=== PATIENT | female | born 1985 | race Caucasian/White ===

== ENCOUNTER 2021-05-29 18:24 | Emergency (ER) | payer OTHER, SELFPAY ==
[2021-05-29 18:26] VITALS: BP 121/80; PULSE 91; RESP 18; TEMP 36.6; O2SAT 100; BMI 27.8
--- NOTE | 2021-05-29 19:20 | EKG12_ITS ---
Test Reason : CP Blood Pressure : / mmHG Vent. Rate : 081 BPM Atrial Rate : 081 BPM P-R Int : 126 ms QRS Dur : 084 ms QT Int : 376 ms P-R-T Axes : 073 071 054 degrees QTc Int : 436 ms Normal sinus rhythm Normal ECG Confirmed by QUINCY GARCIA, LILLIE ([id number]), dictionary editor SARAH HAMILTON ([id number]) on 05/30/2021 1:43:22 PM Referred By: MARIELENA Confirmed By:LILLIE MATHEW MD
[2021-05-29 19:30] VITALS: BP 106/72; PULSE 86; RESP 17; O2SAT 100
--- NOTE | 2021-05-29 19:45 | RAD_ITS ---
STUDY: X-RAY CHEST REASON FOR EXAM: Female, 35 years old. Chest pain TECHNIQUE: Single AP portable view of the chest. COMPARISON: None. FINDINGS: The lungs are clear and expanded. There is no demonstrated pleural abnormality. Normal size heart. Normal mediastinum and freedom. Normal visualized pulmonary arteries. Normal visualized aortic arch and descending thoracic aorta. Normal visualized thoracic spine. Normal visualized ribs, clavicles, and shoulders. There is no demonstrated abnormality of the visualized soft tissue structures of the upper abdomen. RAD/Chest 1 View (Portable) IMPRESSION: Normal x-ray examination of the chest. Electronically Signed: Reggie Miller MD at 20:33 EDT ,
[2021-05-29 19:46] LABS: Absolute Lymphocyte Count 2.49 X10^3/uL (0.83-4.51); Absolute Neutrophil Count 6.1 X10^3/uL (2.0-7.7); Basophil# 0.04 X10^3/uL; Basophil% 0.4 % (0-1); Eosinophil# 0.16 X10^3/uL; Eosinophils% 1.7 % (0-5); Hematocrit 42.5 % (37-47); Hemoglobin 14.6 g/dL (12.0-15.0); Lymphocyte # 2.49 X10^3/ul (0.83-4.51); Lymphocyte % 25.8 % (19-41); Mean Corp Hgb Conc 34.4 g/dL (32-36); Mean Corpuscular Hgb 29.2 pg (27.0-32.0); Mean Platelet Vol. 8.9 fl (6.2-12.0); Monocyte% 9.3 % (0-10); NRBC Flagged by Analyzer 0 % (0-5); Neutrophil # 6.05 X10^3/uL (2.7-7.7); Neutrophil % 62.6 % (47-70); Platelet Count 380 K/mm3 (150-450); RBC Distribution Width CV 12.2 % (11.6-14.6); RBC Distribution Width SD 37.5 fl (35.1-43.9); White Blood Count 9.7 K/mm3 (4.4-11.0)
[2021-05-29 20:07] LABS: Anion Gap 6 (5-15); BUN 11 mg/dL (7-18); BUN/Creat Ratio 13.8 RATIO (10-20); Calcium,Total 9.5 mg/dL (8.5-10.1); Chloride 105 mmol/L (98-107); EST Glomerular Filtration Rate 87 mL/min (>60); Est Glom Filt Rate - Afr Amer 105 mL/min (>60); Estimated Creatinine Clearance 99.95 ml/min; Glucose 91 mg/dL (74-106); Potassium 3.7 mmol/L (3.5-5.1); Sodium Level 139 mmol/L (136-145); Troponin-I HS < 3 pg/mL (3.0-54.0)
--- NOTE | 2021-05-29 20:58 | ED.VIS.CHEST ---
HPI History of Present Illness Chief Complaint: Chest Pain Narrative Narrative: 35-year-old female presenting with chest pain. She states it is very mild. It started this morning in the right ribs when she woke up and she thought she was sleeping in the wrong position so she just herself. Now she has some pain in the anterior portion of the right parasternal area. She does not have any shortness of breath. She denies sharp pleuritic pain. She denies fever, chills, cough. She has no cardiac risk factors. She is on control long-term and has never had a DVT/PE. She has no leg pain or swelling. No recent travel, recent immobilization, recently bedridden, history of cancer. She is a non-smoker. She went to the urgent care and was sent over here for cardiac work-up. PFSH [facility] Home Medications L norgest/e.estradiol-e.estrad [Camrese Lo] See Rx Instructions .ROUTE .COMPLEX 05/29/21 [History Last Taken Unknown] escitalopram oxalate [Lexapro] 10 mg PO DAILY 05/29/21 [History Last Taken Unknown] loratadine [Claritin] 10 mg PO DAILY 05/29/21 [History Last Taken Unknown] vitamin D3-folic acid 1 tab PO DAILY 05/29/21 [History Last Taken Unknown] Allergy/AdvReac Type Severity Reaction Status Date / Time No Known Allergies Allergy Verified 05/29/21 18:25 Social History Smoking Status: Never smoker ROS [facility] ED Constitutional Constitutional ED: Denies chills or fever(s) Eyes Eyes: Denies blurry vision or change in vision ENT ENT ED: Denies rhinorrhea or sore throat Cardiovascular Cardiovascular: Reports as per HPI Respiratory/Chest Respiratory/Chest: Denies cough or dyspnea Gastrointestinal Gastrointestinal: Denies abdominal pain or nausea Genitourinary Genitourinary ED: Denies dysuria or hematuria Musculoskeletal Musculoskeletal: Denies arthralgias or myalgias Integumentary Denies abscess or rash Neurologic Neurologic: Denies headache(s), paresthesias or weakness Psychiatric Psychiatric: Denies anxiety or depression EXAM Physical Exam Const Vital Signs: 05/29/21 18:26 05/29/21 19:30 Temperature 98 F Temperature Source Temporal Pulse Rate 91 86 Respiratory Rate 18 17 Respiratory Effort Normal Blood Pressure 121/80 H 106/72 Blood Pressure Mean 93 106/72 Pulse Ox 100 100 Oxygen Delivery Method Room Air Room Air Positive well developed General Appearance ED: well developed and NAD; Negative for pallor HEENT Reports moist mucous membranes normocephalic and atraumatic Eyes PERRL and EOMs intact bilaterally Chest Wall inspection of chest normal and palpation of chest normal Resp normal respiratory effort Effort and Inspection: respiratory distress Cardio regular rate and regular rhythm GI normal to inspection, nondistended, normoactive bowel sounds Extremity normal to inspection General Extremety ED: Negative for edema or tenderness General Extremity: Negative for edema Neuro oriented x3 Sensorium / Orientation: awake and alert Psych mental status grossly normal Skin no rashes or lesions noted General Skin Exam: Negative for jaundice or pallor Heart Score History: Slightly/Non-Suspicious ECG: Normal Age: </= 45 years Risk Factors: No Risk Factors Troponin: </= Normal Limit Score: 0 MDM MDM MDM Narrative Medical decision making narrative: 35-year-old female presenting with chest pain. It is very mild and started in the right ribs and now it is in the right parasternal area. She has no sharp pleuritic chest pain. Its not painful with deep inspiration. She has no chest pressure. No lightheadedness, dizziness, diaphoresis. She has no cardiac risk factors. She is on control, however she has a heart rate of 86, respirate of 17, pulse ox of 100% on room air. No evidence of DVT on exam. Wells score for PE is 0. EKG obtained on arrival shows a sinus rhythm with a ventricular rate of 81 bpm without sign of ischemic change or dysrhythmia. CBC and BMP are within normal limits. High-sensitivity troponin is less than 3 and she has had pain all day long so I believe this rules out ACS. I have very low clinical suspicion for PE. Her chest x-ray on my interpretation shows no acute cardiopulmonary process and the radiologist does agree. Given this I feel the patient can be discharged home safely. Lab Data Attestation: I reviewed the patient's lab results. Labs: Laboratory Results - last 24 hr 05/29/21 05/29/21 19:30 19:30 WBC 9.7 RBC 5.00 Hgb 14.6 Hct 42.5 MCV 85.0 MCH 29.2 MCHC 34.4 RDW Std Deviation 37.5 RDW Coeff of Radha 12.2 Plt Count 380 MPV 8.9 Immature Gran % (Auto) 0.200 Neut % (Auto) 62.6 Lymph % (Auto) 25.8 [place] % (Auto) 9.3 Eos % (Auto) 1.7 Baso % (Auto) 0.4 Absolute Neuts (auto) 6.1 Absolute Lymphs (auto) 2.49 Nucleated RBC % 0 Sodium 139 Potassium 3.7 Chloride 105 Carbon Dioxide 28.0 Anion Gap 6 BUN 11 Creatinine 0.80 Estim Creat Clear Calc 99.95 Est GFR (MDRD) Af Amer 105 Est GFR (MDRD) Non-Af 87 BUN/Creatinine Ratio 13.8 Glucose 91 Calcium 9.5 Troponin I High Sens < 3 L Radiography Diagnostic Testing: Clinical Impression(s) from Imaging Studies Chest X-Ray 05/29/21 19:45 IMPRESSION: Normal x-ray examination of the chest. Electronically Signed: Reggie Miller MD at 20:33 EDT , Discharge Plan Triage Chief Complaint: Chest Pain ED Provider: Greyson Covington Dx/Rx/DC Orders Instructions: Costochondritis, ED Chest Pain, Noncardiac Prescriptions: No Action loratadine [Claritin] 10 mg Tablet 10 mg PO DAILY RF: 0 escitalopram oxalate [Lexapro] 10 mg Tablet 10 mg PO DAILY RF: 0 L norgest/e.estradiol-e.estrad [Camrese Lo] 0.10 mg-20 mcg (84)/10 mcg (7) Tablets,Dose Pack,3 Month See Rx Instructions .ROUTE .COMPLEX RF: 0 vitamin D3-folic acid 250 mcg (10,000 unit)-1 mg Tablet 1 tab PO DAILY RF: 0 Primary Care Provider: Malissa Li Referrals: Malissa Li MD [Primary Care Provider] - Disposition Disposition: Home, Self Care
[2021-05-29 21:09] VITALS: BP 124/74; PULSE 78; RESP 16; O2SAT 99
== END 2021-05-29 21:09 | disposition home or self-care (01) ==
PROVIDERS: Emergency Provider Student in an Organized Health Care Education/Training Program; PCP Internal Medicine; Visit Provider Student in an Organized Health Care Education/Training Program
DX: M94.0 Chondrocostal junction syndrome [Tietze] (principal); R07.89 Other chest pain; Z79.899 Other long term (current) drug therapy
CPT/HCPCS: 71045; 80048; 84484; 85025; 93005; 99284; A4216